=== PATIENT | male | born 1975 | race Caucasian/White ===

== ENCOUNTER 2018-06-24 05:23 | Day surgery (SDC) | payer MEDICAID ==
[2018-06-16 14:59] LABS: BASOPHILS # (AUTO) 0.1 X10'3 (0-0.2); BASOPHILS % (AUTO) 0.8 % (0-1); EOSINOPHILS # (AUTO) 0.1 X10'3 (0-0.9); EOSINOPHILS % (AUTO) 1.1 % (0-6); LYMPHOCYTES # (AUTO) 2.5 X10'3 (1.1-4.8); LYMPHOCYTES % (AUTO) 24.8 % (21-51); MEAN CORPUSCULAR HEMOGLOBIN 31.2 PG (27.0-31.0); MEAN CORPUSCULAR HGB CONC 34.1 g/dL (33.0-36.5); MEAN CORPUSCULAR VOLUME 91.5 FL (78-98); MEAN PLATELET VOLUME 8.5 FL (7.4-10.4); MONOCYTES # (AUTO) 0.6 X10'3 (0-0.9); MONOCYTES % (AUTO) 5.9 % (2-12); NEUTROPHILS # (AUTO) 6.7 X10'3 (1.8-7.7); NEUTROPHILS % (AUTO) 67.4 % (42-75); PRE OP HEMATOCRIT 48.5 % (42.0-52.0); PRE OP HEMOGLOBIN 16.5 g/dL (14.0-17.9); PRE OP PLATELET COUNT 217 X10'3 (140-440); RED CELL DISTRIBUTION WIDTH 13.8 % (11.5-14.5)
[2018-06-16 15:12] LABS: ALBUMIN/GLOBULIN RATIO 1.3 (1.1-1.5); ALKALINE PHOSPHATASE 72 IU/L (46-116); BLOOD UREA NITROGEN 14 MG/DL (7-18); CALCIUM 9.1 MG/DL (8.5-10.1); CHLORIDE 106 MMOL/L (99-107); PRE OP ALT 35 U/L (30-65); PRE OP ANION GAP 7 (8-16); PRE OP AST 12 U/L (10-37); PRE OP BILIRUB, TOTAL 0.4 MG/DL (0.0-1.0); PRE OP GLUCOSE 91 MG/DL (70-104); PRE OP POTASSIUM 3.7 MMOL/L (3.4-5.1); PRE OP SODIUM 142 MMOL/L (135-145); TOTAL CARBON DIOXIDE 28.6 MMOL/L (24-32); TOTAL PROTEIN 7.1 G/DL (6.4-8.2); eGFR 82 ML/MIN
[2018-06-24] VITALS (7 sets, daily range): BP systolic 110–125; BP diastolic 70–80
[~2018-06-24] VITALS: Ht 180.3 cm; Wt 88.1 kg
[~2018-06-24 05:23] MED LIST: NAPR220C15 PO; ringers solution, lacted 1,000 ML IV SCH
[2018-06-24] MEDS ORDERED: vancomycin inj 1,500 MG in normal saline 300ml IV soln IV ONE (05:30)
[2018-06-24] MEDS ORDERED: cefazolin/dext.iso 2gm/100 ML IV ONE (05:30)
[2018-06-24] MEDS ORDERED: famotidine 20mg tablet PO ONE (05:30)
[2018-06-24] MEDS ORDERED: LIDOcaine 1% (10mg/ml) 2ml vial ONE (05:58)
[2018-06-24] MEDS ORDERED: BUPIVAcaine/PF 2.5mg/ml (0.25%) 10ml vial ONE (07:11)
[2018-06-24] MEDS ORDERED: ketorolac trometh. 30mg/ml inj. ONE (07:15)
[2018-06-24] MEDS ORDERED: ondansetron/PF 4mg/2ml inj ONE (07:15)
[2018-06-24] MEDS ORDERED: sevoflurane 250ml liquid IH ONE (07:15)
[2018-06-24] MEDS ORDERED: midazolam 2 mg/2 ml injection ONE (07:24)
[2018-06-24] MEDS ORDERED: fentaNYL /PF 50mcg/ml 5ml ampule ONE (07:27)
[2018-06-24] MEDS ORDERED: propofol inj 20 ML IV ONE (07:28)
[2018-06-24] MEDS ORDERED: LIDOcaine 1%/PF 5ML 10 MG/ML VIAL ONE (07:28)
[2018-06-24] MEDS ORDERED: dexamethasone sod phosphate 4mg/ml inj. ONE (07:33)
[2018-06-24] MEDS ORDERED: ringers solution, lacted 1,000 ML IV SCH (08:06)
[2018-06-24] MEDS ORDERED: proCHLORperazine 10 MG/2 ml inj IV PRN (08:10)
[2018-06-24] MEDS ORDERED: ondansetron/PF 4mg/2ml inj IV PRN (08:10)
[2018-06-24] MEDS ORDERED: meperidine/PF 25mg/ml syringe IV PRN ×3 (08:10)
[2018-06-24] MEDS ORDERED: morphine 4 MG/ML inj SYRINge IV PRN ×2 (08:10)
--- NOTE | 2018-06-24 08:32 | NUR ---
Received from OR via TOM, accompanied by Anesthesiologist DR AGUILERA and report given by Anesthesiologist. PT DROWSY W/ORAL AIRWAY, LEFT KNEE W/BIAS SOCK COVERING, CDI. NO S/S OF DISTRESS/DISCOMFORT. Addendum: 06/24/18 at 0854 by Xin Avalos RN Amended: Links added.
== END 2018-06-24 09:32 | disposition home or self-care (01) ==
LOC: PAS 05:23
PROVIDERS: ATTEND Orthopaedic Surgery
DX: S83.242A Other tear of medial meniscus, current injury, left knee, initial encounter (principal); S83.282A Other tear of lateral meniscus, current injury, left knee, initial encounter; M22.42 Chondromalacia patellae, left knee; M17.0 Bilateral primary osteoarthritis of knee; E66.8 Other obesity; M25.861 Other specified joint disorders, right knee; X58.XXXA Exposure to other specified factors, initial encounter; Y93.89 Activity, other specified; Y92.89 Other specified places as the place of occurrence of the external cause; Y99.8 Other external cause status; Z68.28 Body mass index [BMI] 28.0-28.9, adult; Z98.890 Other specified postprocedural states
CPT/HCPCS: 29873; 29879; 29880; 36415; 80053; 82948; 85025; 93005; A6449; J0690; J1100; J1885; J2001; J2250; J2405; J2704; J3010; J3370; J3490; A6250; A7000; J7030; J7120